=== PATIENT | female | born 1980 | race Caucasian/White ===

== ENCOUNTER 2016-07-05 11:11 | Emergency (ER) | payer SELFPAY ==
[~2016-07-05] VITALS: Ht 157.5 cm; Wt 101.5 kg
[2016-07-05 11:29] VITALS: Ht 157.5 cm; Wt 101.5 kg
[2016-07-05] MEDS ORDERED: IBUP800T25 PO (12:46)
[2016-07-05] MEDS ORDERED: ACET325T33 PO (12:46)
[2016-07-05] MEDS ORDERED: IBUPROFEN 800 MG TAB PO ONE (13:00)
[2016-07-05 13:05] VITALS: TEMP 98.4
--- NOTE | 2016-07-05 15:17 | ERD ---
DATE OF SERVICE: HISTORY OF PRESENT ILLNESS: The patient is a 35-year-old female coming in complaining of sore throa t for 1 week. She states she has had a fever since yesterday, tactile, with no documentation of tem perature. She states she is losing her voice. She is not taking medications for her symptoms. Has positive sick contacts at home. Has no runny nose. Had a cough, but has now resolved. MEDICAL HISTORY: Migraines. ALLERGIES TO MEDICATIONS: DENIES. SURGICAL HISTORY: Cervical LEEP surgery. SOCIAL HISTORY: Denies. REVIEW OF SYSTEMS: A 12-point review of systems was done. Refer to HPI for positives, all other sy stems negative. PHYSICAL EXAMINATION VITAL SIGNS: Temperature is 98.7, pulse 82, blood pressure is 146/70, respiratory rate 16, O2 satur ation 98% on room air. Pain intensity 8/10. GENERAL: The patient is well-appearing, well-nourished, no acute distress. HEART: Regular rate and rhythm. No murmurs, clicks, rubs or gallops. No S3 or S4. CHEST: Clear to auscultation bilaterally. There are no rales, wheezes or rhonchi. HEENT: Atraumatic. Conjunctivae are pink. Pupils equal, round, and reactive to light. There is no s cleral icterus. Tympanic membranes clear bilaterally. Oropharynx clear. No nystagmus or photophobia . ABDOMEN: Soft, nontender and nondistended. Good bowel sounds. No rebound or guarding. No gross brooke tonitis. No gross organomegaly or masses. No Mtz sign or McBurney point tenderness. SKIN: There is no apparent rash or petechia. The skin is warm and dry. DIAGNOSES: 1. Laryngitis. 2. Upper respiratory infection. MEDICAL DECISION MAKING: I have low suspicion for a bacterial HEENT infection, low suspicion for me ningitis. DISCHARGE: The patient is discharged stable. Patient given prescription for ibuprofen and Tylenol and told to follow up with primary care within 1 to 2 days for reevaluation. The patient was told i f symptoms progress or worsen to return to the ER. All other questions answered at time of discharg e. Discharge summary given at time of departure. Patient understood and complied with plan. Dictated By: MAJO ELIZABETH DO /NTS Conf#: [id number] DID#: [id number]
== END 2016-07-05 13:06 | disposition home or self-care (01) ==
LOC: FTE 11:11
DX: J02.9 Acute pharyngitis, unspecified (principal); J06.9 Acute upper respiratory infection, unspecified
CPT/HCPCS: 99283